=== PATIENT | male | born 1940 | race Caucasian/White ===

== ENCOUNTER 2016-10-29 14:20 | Observation (INO) | payer MEDICARE, OTHER ==
[2016-10-29] MEDS: NITROGLYCERIN 0.4 MG TAB.SUBL SL ONE (14:35)
[2016-10-29 14:39] LABS: BASOPHILS % 0.7 (0.0-1.5); EOSINOPHILS % 1.4 % (0.0-6.8); MEAN CORPUSCULAR HEMOGLOBIN 32.5 pg (28.0-34.0); MEAN CORPUSCULAR VOLUME 94.2 fl (80.0-100.0); MONOCYTES % 5.8 % (0.0-11.0); NEUTROPHILS # 7.5 # k/uL (1.4-7.7)
[2016-10-29] MEDS: ASPIRIN 81 MG CHEW TAB PO ONE (14:40)
[2016-10-29 15:00] LABS: eGFR (African) > 60; eGFR (Non-African) 42
--- NOTE | 2016-10-29 15:04 | ED Physician Documentation ---
General Adult - HISTORIAN Historian: patient - HPI Stated Complaint: CHEST PAIN Chief Complaint: General Adult Onset: minutes (45) Timing: still present Severity: moderate Further Comments: yes (Pt is a 76 yo male with hx CO and stents placed who developed 6/10 achy chest pain in his central chest while doing yard work. Pain did not radiate. Pt was slightly nauseated. Pt was sweating from working , he says. Pt took nitro x 1 with no change in sx.) - ROS CONST: sweating EYES/ENT: none CVS/RESP: chest pain, shortness of breath (slight) GI/: nausea (mild) MS/SKIN/LYMPH: none - PAST HX Past History: AMI (stents) Allergies/Adverse Reactions: Allergies Allergy/AdvReac Type Severity Reaction Status Date / Time No Known Allergies Allergy Unverified 10/29/16 14:30 Home Medications: Ambulatory Orders Medication Instructions Recorded Aspirin [Rosalia] 81 mg PO DAILY 10/29/16 Atorvastatin Calcium 20 mg PO HS 10/29/16 Canagliflozin [Invokana] 300 mg PO DAILY 10/29/16 Cholecalciferol [Vitamin D-3] 2,000 unit PO DAILY 10/29/16 Clopidogrel Bisulfate [Clopidogrel] 75 mg PO DAILY 10/29/16 Cyanocobalamin [Vitamin B-12] 1,000 mcg PO DAILY 10/29/16 Multivit-Min/FA/Lycopene/Lut 2 each PO DAILY 10/29/16 [Centrum Silver Tablet] Mcguffey-3 Fatty Acids/Fish Oil [Fish 2 each PO DAILY 10/29/[address] 1,000 mg Softgel] Sitagliptin Phos/Metformin HCl 2 tab PO DAILY 10/29/16 [Janumet 50-1,000 mg Tablet] Ubidecarenone [Co Q-10] 400 mg PO DAILY 10/29/16 - SOCIAL HX Smoking History: non-smoker - FAMILY HX Family History: No - VITAL SIGNS Vital Signs: Vital Signs Temp Pulse Resp BP Pulse Ox 97 F L 72 16 160/74 96 10/29/16 14:20 10/29/16 14:30 10/29/16 14:20 10/29/16 14:20 10/29/16 14:30 - REVIEWED ASSESSMENTS Nursing Assessment Reviewed: Yes Vitals Reviewed: Yes Progress - Progress Progress: CXR: Emphysema. Chronic basilar predominant interstitial lung changes. Bibasilar atelectasis. No pleural effusion. Scarring right upper lobe. Engineer [employer] is Dr. Krishan Hernandez, [facility] (across from [facility]). ASA 325 mg po Nitro 0.4 mg SL no change GI cocktail Admit to ER physician for obs, R/O CO. - EKG/XRAY/CT EKG: NSR (HR=75; normal DC interval; normal axis; normal EKG) ED Results Lab/Radiology - Lab Results Lab Results: Lab Results 10/29/16 14:35 WBC 10.58 K/ul K/ul (4.00-12.00) RBC 5.09 M/ul M/ul (3.90-5.20) Hgb 16.6 g/dL H g/dL (12.0-16.0) Hct 48.0 % H % (34.5-46.5) MCV 94.2 fl fl (80.0-100.0) MCH 32.5 pg pg (28.0-34.0) MCHC 34.5 g/dL g/dL (30.0-36.0) RDW 13.2 % % (11.3-14.3) Plt Count 233 K/mm3 K/mm3 (130-400) Neut % (Auto) 70.7 % % (39.0-79.0) Lymph % (Auto) 20.6 % % (16.0-50.0) [place] % (Auto) 5.8 % % (0.0-11.0) Eos % (Auto) 1.4 % % (0.0-6.8) Baso % (Auto) 0.7 (0.0-1.5) Neut # 7.5 # k/uL # k/uL (1.4-7.7) Lymph # 2.2 # k/uL # k/uL (0.6-4.0) [place] # 0.6 # k/uL # k/uL (0.0-0.9) Eos # 0.2 # k/uL # k/uL (0.0-0.6) Baso # 0.1 # k/uL # k/uL (0.0-0.5) Reactive Lymphs % 0.8 % % (0.0-5.0) Reactive Lymphs # 0.1 # k/uL # k/uL (0.0-0.8) - Orders Orders: ED Orders Category Date Time Status Continuous EKG monitoring Q30M Care 10/29/16 14:30 Active Continuous Pulse Oximetry Q30M Care 10/29/16 14:[address] Saline Lock/IV NOW Care 10/29/16 14:30 Active CHEST 1 VIEW [RAD] Stat Exams 10/29/16 14:30 Ordered CBC/PLATELET/DIFF Routine Lab 10/29/16 14:35 Completed CKMB Stat Lab 10/29/16 14:35 Received CMP Routine Lab 10/29/16 14:35 Received CREATINE KINASE Routine Lab 10/29/16 14:35 Received NT-proBNP Stat Lab 10/29/16 14:35 Received TROPONIN I (cTnI) Stat Lab 10/29/16 14:35 Received Aspirin Med 10/29/16 14:29 Discontinued 324 mg PO NOW ONE Nitroglycerin [Nitroquick] Med 10/29/16 14:29 Discontinued 0.4 mg SL NOW ONE Oxygen Daily Oxygen 10/29/16 14:30 Ordered EKG WITH COMPARISON Stat Ther 10/29/16 14:30 Ordered General Adult Physical Exam - PHYSICAL EXAM GENERAL APPEARANCE: moderate distress EENT: pharynx normal NECK: normal inspection, supple RESPIRATORY: no resp distress, chest non-tender, breath sounds normal (distant breath sounds) CVS: reg rate & rhythm, heart sounds normal ABDOMEN: soft, no organomegaly, normal bowel sounds BACK: normal inspection, no CVA tenderness SKIN: warm/dry, normal color EXTREMITIES: non-tender, normal range of motion, no evidence of injury NEURO: oriented X3, motor nml, sensation nml, mood/affect nml Discharge Clincal Impression: Chest pain Qualifiers: Chest pain type: unspecified Qualified Code(s): R07.9 - Chest pain, unspecified Referrals: Primary Doctor,No [Primary Care Provider] - 2 Days Home Medications: Ambulatory Orders Aspirin [Rosalia] 81 mg PO DAILY 10/29/16 Atorvastatin Calcium 20 mg PO HS 10/29/16 Canagliflozin [Invokana] 300 mg PO DAILY 10/29/16 Cholecalciferol [Vitamin D-3] 2,000 unit PO DAILY 10/29/16 Clopidogrel Bisulfate [Clopidogrel] 75 mg PO DAILY 10/29/16 Cyanocobalamin [Vitamin B-12] 1,000 mcg PO DAILY 10/29/16 Multivit-Min/FA/Lycopene/Lut [Centrum Silver Tablet] 2 each PO DAILY 10/29/16 Mcguffey-3 Fatty Acids/Fish Oil [Fish Oil Dr 1,000 mg Softgel] 2 each PO DAILY 04/07 Sitagliptin Phos/Metformin HCl [Janumet 50-1,000 mg Tablet] 2 tab PO DAILY 10/29 Ubidecarenone [Co Q-10] 400 mg PO DAILY 10/29/16 Condition: Stable Disposition: ADMITTED INPATIENT Decision to Admit: [id number] Decision Time: 15:55
[2016-10-29] MEDS ORDERED: Lidocaine 2%Visc 15ml 20 MG/ML UDC ONE (15:54)
[2016-10-29] MEDS ORDERED: MAGNESIUM HYDROXIDE/AL HYDROX 30 ML UDC PO ONE (15:54)
[2016-10-29] MEDS: MAG HYDROX/AL HYDROX/SIMETH 30 ML, Lidocaine 2%Visc 15ml 20 MG, PHENobarb/HYOSCY/ATROPI... PO ONE ×3 (15:58)
[2016-10-29 17:11] VITALS: BMI 22.0
[2016-10-29] MEDS ORDERED: ATORVASTATIN CALCIUM 80 MG TABLET PO ONE (17:28)
[2016-10-29] MEDS: ATORVASTATIN CALCIUM 80 MG TABLET PO SCH (20:28)
[2016-10-29] MEDS ORDERED: SALINE FLUSH 10 ML DISP.SYRIN IVF ONE (21:41)
[2016-10-29] MEDS: NITROGLYCERIN/D5W 50 MG/250 ML ML IV ONE (22:06)
[2016-10-29 22:33] VITALS: BP 140/70
[2016-10-29] MEDS ORDERED: ENOXAPARIN SODIUM 80 MG/0.8 ML DISP.SYRIN SQ ONE (22:46)
[2016-10-29] MEDS: ENOXAPARIN SODIUM 100 MG/ML DISP.SYRIN SQ ONE (22:59)
--- NOTE | 2016-10-30 05:13 | Diagnostic Imaging Report ---
WARREN ESTEVEZ [facility] [address] [facility] [address] [place] [address]. [id number] Report Submission Date: October 29, 2016 3:09:41 PM CDT Patient Study Name: MARCELLO OSUNA Date: October 29, 2016 2:39:41 PM CDT Modality Type: CR Gender: M Description: CHEST : 38 Institution: [facility] Physician: WARREN ESTEVEZ Single frontal view of the chest History: CHEST PAIN THIS AFTERNOON, HX OF STENTS Findings: No comparison studies The heart is normal in size. The lungs are hyperinflated and basilar predominant interstitial lung changes are noted with reticulo nodular opacities. There is bibasilar atelectasis. No pleural effusion or pneumothorax Scarring is seen in the right upper lobe Degenerative changes are noted in the shoulders Impression: Emphysema. Chronic basilar predominant interstitial lung changes. Bibasilar atelectasis No pleural effusion. Scarring right upper lobe Electronically signed on October 29, 2016 3:09:41 PM CDT by: Taylor CARVER
[2016-10-30] MEDS ORDERED: CLOPIDOGREL BISULFATE 75 MG TABLET PO SCH (09:00)
[2016-10-30] MEDS ORDERED: ASPIRIN 81 MG CHEW TAB PO SCH (09:00)
[2016-10-30] MEDS ORDERED: CHOLECALCIFEROL 1,000 UNIT TABLET PO SCH (09:00)
[2016-10-30] MEDS ORDERED: SITAGLIPTIN PHOSPHATE 50 MG TABLET PO SCH (09:00)
[2016-10-30] MEDS ORDERED: CYANOCOBALAMIN 1,000 MCG TABLET PO SCH (09:00)
== END 2016-10-29 22:58 | disposition short-term general hospital (02) ==
LOC: ED 14:20 → INTOOBSV 16:40 → EDSEX 16:40 → SOUTH 16:40
PROVIDERS: ADMIT Emergency Medicine; ATTEND Emergency Medicine
DX: R07.9 Chest pain, unspecified (principal)
CPT/HCPCS: 71010; 80053; 82550; 82553; 83880; 84484; 85025; 93005; A9270; G0378; J1650; J3490; 99284; G0379; S1016